=== PATIENT | male | born 1975 | race Caucasian/White ===

== ENCOUNTER 2021-07-08 10:40 | Emergency (ER) | payer SELFPAY ==
[~2021-07-08] VITALS: Ht 182.9 cm; Wt 81.6 kg
[~2021-07-08 10:40] MED LIST: ALBU0.0939; FLUT1DSK
[2021-07-08 10:44] VITALS: BP 128/69
[2021-07-08] MEDS ORDERED: ALBUTEROL SULFATE/IPRATROPIU 3 ML SOL IH ONE ×2 (10:45→11:20)
--- NOTE | 2021-07-08 10:48 | NUR ---
RT in triage room for [facility] neema
[2021-07-08] MEDS ORDERED: ALBUTEROL 0.083% 2.5 MG/3 ML NEBU INH ONE (10:50)
--- NOTE | 2021-07-08 10:50 | NUR ---
Patient ambulated to bed 10 with steady/even gait. RT to initiate neb tx in bed 10.
--- NOTE | 2021-07-08 10:59 | NUR ---
PT CURRENTLY ON 10 MG ALBUTEROL. PT TOLERATING TX WELL. WILL CONTINUE TO MONITOR.
--- NOTE | 2021-07-08 11:23 | NUR ---
STARTED PT ON ANOTHER TX PER ORDERS. PT IS CALM. I/E WHEEZES. PT TOLERATING TX WELL. NO ADVERSE REACTION. WILL CONTINUE TO MONITOR.
[2021-07-08] MEDS ORDERED: MAG SULF 2000 MG/WATER PREMIX 50 ML IV ONE (11:25)
[2021-07-08] MEDS ORDERED: methylPREDNISolone SS 125 MG in WATER STERILE 2 ML IV ONE (11:25)
--- NOTE | 2021-07-08 11:30 | NUR ---
45/M PRESENTS TO ED WITH C/O SOB. PATIENT STATES HE HAS ASTHMA AND WOKE UP FEELING SOB SINCE THIS MORNING, STATING HE COULD NOT FIND RELIEF AT HOME, AUDIBLE WHEEZES NOTED. DENIES CP, NAUSEA, VOMITING OR FEVER. STATES HE ONLY WANTS A BREATHING TREATMENT. PATIENT PLACED ON BEDSIDE MONITOR, OXYGEN 96% ON ROOM AIR. DR. BELL AWARE OF PATIENT.
[2021-07-08] MEDS ORDERED: predniSONE 20 MG TAB PO ONE (11:35)
[2021-07-08] MEDS ORDERED: PRED20TA5 PO (12:54)
[2021-07-08] MEDS ORDERED: ALBU0.0912 INH (12:54)
[2021-07-08 13:04] VITALS: BP 112/73
--- NOTE | 2021-07-08 13:04 | NUR ---
Patient discharged with v/s stable. Written and verbal after care instructions given and explained. Patient alert, oriented and verbalized understanding of instructions. Ambulatory with steady gait. All questions addressed prior to discharge. ID band removed. Patient advised to follow up with PMD. Rx of prednisone and proventil given. Patient educated on indication of medication including possible reaction and side effects. Opportunity to ask questions provided and answered.
== END 2021-07-08 13:04 | disposition home or self-care (01) ==
LOC: MED 10:40
DX: J45.901 Unspecified asthma with (acute) exacerbation (principal); Z79.899 Other long term (current) drug therapy
CPT/HCPCS: 71045; 93005; 94640; 99291; J7512; J7613

== ENCOUNTER 2021-07-15 05:08 | Emergency (ER) | payer OTHER ==
[~2021-07-15] VITALS: Ht 182.9 cm; Wt 79.4 kg
[~2021-07-15 05:08] MED LIST changes: +ALBU0.0912 INH; +PRED20TA5 PO
[2021-07-15 05:11] VITALS: BP 103/57
--- NOTE | 2021-07-15 05:11 | NUR ---
TO [facility]
[2021-07-15] MEDS ORDERED: ALBUTEROL SULFATE/IPRATROPIU 3 ML SOL IH ONE ×2 (05:30→05:31)
--- NOTE | 2021-07-15 05:30 | NUR ---
SEEN AND EXAMINED BY BOB.
--- NOTE | 2021-07-15 05:35 | NUR ---
RT ADMINISTERING BREATHING TREATMENT
[2021-07-15] MEDS ORDERED: predniSONE 20 MG TAB PO ONE (05:55)
--- NOTE | 2021-07-15 05:55 | NUR ---
MEDICATED PER ERMDS ORDER. TOLERATED WELL
[2021-07-15] MEDS ORDERED: ALBU3SOL83 IH (06:30)
[2021-07-15] MEDS ORDERED: PRED20TA5 PO (06:30)
[2021-07-15 06:35] VITALS: BP 118/62
--- NOTE | 2021-07-15 06:35 | NUR ---
Patient discharged with v/s stable. Written and verbal after care instructions given and explained. Patient alert, oriented and verbalized understanding of instructions. Ambulatory with steady gait. All questions addressed prior to discharge. ID band removed. Patient advised to follow up with PMD. Rx of ALBUTEROL, DELTASONE given. Patient educated on indication of medication including possible reaction and side effects. Opportunity to ask questions provided and answered.
== END 2021-07-15 06:35 | disposition home or self-care (01) ==
LOC: MED 05:08
DX: J45.901 Unspecified asthma with (acute) exacerbation (principal); Z79.899 Other long term (current) drug therapy
CPT/HCPCS: 94640; 99283; J7512

== ENCOUNTER 2021-09-21 00:49 | Emergency (ER) | payer OTHER ==
[~2021-09-21] VITALS: Ht 182.9 cm; Wt 79.4 kg
[2021-09-21 00:49] VITALS: BP 90/41
[~2021-09-21 00:49] MED LIST changes: +ALBU3SOL83 IH
--- NOTE | 2021-09-21 00:49 | NUR ---
patient w/c assisted to bed 1
[2021-09-21] MEDS ORDERED: methylPREDNISolone SS 125 MG in WATER STERILE 2 ML IM ONE (01:00)
[2021-09-21] MEDS ORDERED: ALBUTEROL SULFATE/IPRATROPIU 3 ML SOL IH ONE ×2 (01:00→01:20)
--- NOTE | 2021-09-21 01:03 | NUR ---
46 yo m bib self with c/c of sob xlast night. pt refuses to answer questions or open eyes. pt yelled at me while trying to do assessments. pt said he has asthma and is fatigued. rt at bedside. wheezes ausculated on excertion. hx: asthma rx:albuterol nka
[2021-09-21] MEDS ORDERED: WATER STERILE 10 ML MC ONE (01:09)
[2021-09-21] MEDS ORDERED: methylPREDNISolone SS 125 MG/2 ML VIAL ONE (01:09)
--- NOTE | 2021-09-21 01:12 | NUR ---
rad at bedside.
[2021-09-21] MEDS ORDERED: ALBUTEROL 0.083% 2.5 MG/3 ML NEBU INH ONE ×2 (01:20→01:22)
[2021-09-21] MEDS ORDERED: ALBU0.0912 IH (03:06)
[2021-09-21] MEDS ORDERED: PRED20TA5 PO (03:06)
[2021-09-21 03:38] VITALS: BP 135/69
--- NOTE | 2021-09-21 03:38 | NUR ---
Patient discharged with v/s stable. Written and verbal after care instructions given and explained. Patient alert, oriented and verbalized understanding of instructions. Ambulatory with steady gait. All questions addressed prior to discharge. ID band removed. Patient advised to follow up with PMD. Rx of prednisone, albuterol given. Patient educated on indication of medication including possible reaction and side effects. Opportunity to ask questions provided and answered.
== END 2021-09-21 03:30 | disposition home or self-care (01) ==
LOC: MED 00:49
DX: J45.901 Unspecified asthma with (acute) exacerbation (principal); Z79.899 Other long term (current) drug therapy
CPT/HCPCS: 71045; 94640; 96372; 99283; J2930; J7613

== ENCOUNTER 2021-10-14 23:03 | Emergency (ER) | payer OTHER ==
[~2021-10-14] VITALS: Ht 182.9 cm; Wt 79.4 kg
[~2021-10-14 23:03] MED LIST changes: +ALBU0.0912 IH
[2021-10-14 23:15] VITALS: BP 140/84
[2021-10-14] MEDS ORDERED: ALBUTEROL SULFATE/IPRATROPIU 3 ML SOL IH ONE ×3 (23:20→23:50)
[2021-10-14] MEDS ORDERED: predniSONE 20 MG TAB PO ONE (23:25)
--- NOTE | 2021-10-14 23:26 | NUR ---
RT AT CHAIRSIDE
[2021-10-14] MEDS ORDERED: ALBUTEROL HFA MDI 90 MCG/ACTUATION 8 GM INH ONE (23:40)
[2021-10-15] MEDS ORDERED: predniSONE 20 MG TAB ONE (00:56)
[2021-10-15] MEDS ORDERED: ALBU0.0912 INH (00:57)
[2021-10-15] MEDS ORDERED: PRED20TA6 PO (00:57)
== END 2021-10-15 01:09 | disposition home or self-care (01) ==
LOC: MED 23:03
DX: J45.901 Unspecified asthma with (acute) exacerbation (principal); Z79.899 Other long term (current) drug therapy
CPT/HCPCS: 94640; 99284; J7512

== ENCOUNTER 2021-11-29 20:45 | Emergency (ER) | payer OTHER ==
[~2021-11-29] VITALS: Ht 182.9 cm; Wt 79.4 kg
[~2021-11-29 20:45] MED LIST changes: +PRED20TA6 PO
[2021-11-29 20:49] VITALS: BP 107/68
--- NOTE | 2021-11-29 20:55 | NUR ---
PT TAKEN TO BED 2. PLACED ON MONITOR. ERMD MADE AWARE. RT CALLED.
[2021-11-29] MEDS ORDERED: ALBUTEROL SULFATE/IPRATROPIU 3 ML SOL IH ONE ×2 (21:00→21:25)
[2021-11-29] MEDS ORDERED: predniSONE 20 MG TAB PO ONE (21:00)
[2021-11-29] MEDS ORDERED: ALBUTEROL 0.083% 2.5 MG/3 ML NEBU INH ONE ×3 (21:00→22:10)
--- NOTE | 2021-11-29 21:00 | NUR ---
assumed patient care, pt here for SOB. Connected to monitoring and evaluation advisor, RT at the bedside to start breathing treatment. Awaiting for orders for blood work. Pt given PO prednisone.
[2021-11-29] MEDS ORDERED: MAG SULF 2000 MG/WATER PREMIX 50 ML IV ONE (22:10)
[2021-11-29] MEDS ORDERED: IPRATROPIUM 0.02% 0.5 MG/2.5 ML NEBU INH ONE (22:10)
--- NOTE | 2021-11-29 22:55 | NUR ---
Dr. Esqueda at the bedside, ultrasound guided IV insertion started and well tolerated by patient. G18 on the left ac secured by Dr. Esqueda. Line flushed and aspirated for backflow. To start magnesium 2g IV.
[2021-11-29 23:29] VITALS: BP 104/69
--- NOTE | 2021-11-29 23:40 | NUR ---
Patient put on BIPAP with the ff settings 07/18/12 30% by RT. Patient tolerating treatment well, noted significant decrease in work of breathing.
--- NOTE | 2021-11-30 01:17 | NUR ---
BLOOD SPECIMEN COLLECTED FROM PATIENT'S IV LINE AND SENT TO LAB.
[2021-11-30 01:22] LABS: BASOPHILS % (AUTO) 0.3 % (0.0-2.0); EOSINOPHILS # (AUTO) 0.1 K/uL (0-0.4); EOSINOPHILS % (AUTO) 1.3 % (0.0-4.0); HEMATOCRIT 42.3 % (36-52); HEMOGLOBIN 14.3 g/dL (12.0-18.0); LYMPHOCYTES # (AUTO) 0.6 K/uL (2.0-11.5); LYMPHOCYTES % (AUTO) 5.4 % (20.5-51.1); MEAN CORPUSCULAR HEMOGLOBIN 30 pg (27-31); MEAN CORPUSCULAR HGB CONC 34 g/dL (33-37); MEAN CORPUSCULAR VOLUME 89.1 fL (80-94); MONOCYTES # (AUTO) 0.1 K/uL (0.8-1.0); MONOCYTES % (AUTO) 1.2 % (1.7-9.3); NEUTROPHILS # (AUTO) 10.3 K/uL (1.8-7.7); NEUTROPHILS % (AUTO) 91.8 % (42.2-75.2); PLATELET COUNT (AUTO) 402 K/uL (140-450); RED BLOOD CELL COUNT(AUTO) 4.75 MIL/uL (4.20-6.10); WHITE BLOOD COUNT (AUTO) 11.2 K/uL (4.8-10.8)
[2021-11-30 01:46] LABS: ALBUMIN 3.2 g/dL (3.4-5.0); ANION GAP 10.7 (8-16); CARBON DIOXIDE 29.4 mmol/L (21-32); CREATININE 0.9 mg/dL (0.6-1.3); POTASSIUM 4.1 mmol/L (3.5-5.1); TOTAL BILIRUBIN 0.3 mg/dL (0.0-1.0)
--- NOTE | 2021-11-30 02:32 | NUR ---
Re-assesed by MD, ordered for another breathing treatment and BIPAP on standby, to switch to nasal cannula.
[2021-11-30] MEDS ORDERED: ALBUTEROL SULFATE/IPRATROPIU 3 ML SOL IH ONE ×3 (02:35→04:15)
[2021-11-30] MEDS ORDERED: ALBUTEROL 0.083% 2.5 MG/3 ML NEBU INH ONE (04:25)
[2021-11-30] MEDS ORDERED: BUDE1AER IH (04:28)
[2021-11-30] MEDS ORDERED: ALBU0.0912 INH (04:28)
[2021-11-30] MEDS ORDERED: PRED20TA5 PO (04:28)
--- NOTE | 2021-11-30 05:08 | NUR ---
Patient cleared for dc, IV line discontinued, discharge instructions reinforced and verbalized understanding, vital signs stable on discharge, exited ED with steady gait.
[2021-11-30 05:14] VITALS: BP 113/58
== END 2021-11-30 05:06 | disposition home or self-care (01) ==
LOC: MED 20:45
DX: J45.901 Unspecified asthma with (acute) exacerbation (principal); Z79.899 Other long term (current) drug therapy
CPT/HCPCS: 36415; 71045; 80053; 85025; 94640; 94644; 96365; 99285; J3475; J7512; J7613; J7644; Q0092